=== PATIENT | female | born 1970 | race Caucasian/White ===

== ENCOUNTER → 2021-09-12 | Outpatient (CLI) | payer BC ==
[~2021-09-12] MED LIST: LISINOPRIL-HCT1 EACH PO; OMEPRAZOLE40 MG PO
== END ==
LOC: KOH-I 09:52
DX: M25.551 Pain in right hip (principal); M54.30 Sciatica, unspecified side
CPT/HCPCS: 72100; 72220; 73501

== ENCOUNTER → 2021-09-18 | Outpatient (CLI) | payer BC | LOC: KOH-I 09:37 | DX: M25.551 Pain in right hip (principal); M54.30 Sciatica, unspecified side; M62.838 Other muscle spasm; Z00.00 Encounter for general adult medical examination without abnormal findings | CPT/HCPCS: 72040; 72070 ==